=== PATIENT | female | born 1950 | race Caucasian/White ===

== ENCOUNTER 2020-09-26 15:17 | Emergency (ER) | payer MEDICARE, MEDICAID ==
[~2020-09-26] VITALS: Ht 152.4 cm; Wt 73.6 kg
[~2020-09-26 15:17] MED LIST: ACET500T33 PO; CHOL400C PO; CLON1TAB11 PO; CRESTOR20 MG PO; CYCL1DRO OP; GABA-586 PO; GLIP10TA24 PO; LACT10SO35 PO; LEVO112T4 PO; LIDO700A4 TP; METF10007 PO; PSYL1PAC7 PO; RANI300T PO; ROPI1TAB4 PO; SOLI5TAB2 PO; VALS160T3 PO; VERA240C2 PO; VILA40TA PO; VITAMIN B; lithium
[2020-09-26] MEDS ORDERED: ASPIRIN CHEWABLE 81 MG TABLET. PO ONE (15:30)
--- NOTE | 2020-09-26 15:37 | PHYS DOC ---
Past History Past Medical History: Bipolar, Diabetes, Fibromyalgia, GERD, Hypertension, TIA Past Surgical History: Appendectomy, Cholecystectomy, , Other Smoking: Non-smoker Alcohol Use: None Drug Use: None Adult General Chief Complaint Chief Complaint: CHEST PAIN HPI HPI Patient is a 69-year-old female who presents for chest pressure. Onset was 5 hours prior to arrival while at rest. Nothing known makes better or worse. P steve described as deep pressure "it feels like someone is pushing deep into my chest with their fist". It radiates to her right shoulder. Has history of provocative cardiac work-up in outpatient setting with an unremarkable cardiac stress test 2 years ago, his never undergone cardiac catheterization, no other known cardiac diagnoses. States she does have history of blood clot but this was "a long time ago ". This was provoked after prolonged sedentary state for which she denies being sedentary recently. Review of Systems Review of Systems Fourteen body systems of review of systems have been reviewed. See HPI for pertinent positives and negative responses, other farias all other systems are negative, non-pertinent or non-contributory Allergies Allergies Allergies Coded Allergies Type Severity Reaction Last Updated Verified codeine Allergy Unknown 09/26/20 Yes divalproex sodium Allergy Unknown 09/26/20 Yes lubiprostone Allergy Unknown dizziness 09/26/20 Yes meclizine Allergy Unknown 09/26/20 Yes midodrine Allergy Unknown 09/26/20 Yes morphine Allergy Unknown 09/26/20 Yes pentobarbital Allergy Unknown 09/26/20 Yes propoxyphene HCl Allergy Unknown 09/26/20 Yes Physical Exam Physical Exam Constitutional: Well developed, well nourished, no acute distress, non-toxic appearance. HENT: Normocephalic, atraumatic, bilateral external ears normal, oropharynx moist, no oral exudates, nose normal. Eyes: PERRLA, EOMI, conjunctiva normal, no discharge. Neck: Normal range of motion, no tenderness, supple, no stridor. Cardiovascular: Heart rate regular, sinus rhythm, no murmurs rubs or gallops Lungs & Thorax: Bilateral breath sounds clear to auscultation Abdomen: Bowel sounds normal, soft, no tenderness, no masses, no pulsatile masses. Nonsurgical abdomen, no peritoneal signs Skin: Warm, dry, no erythema, no rash. Back: No tenderness, no CVA tenderness. Extremities: No tenderness, no cyanosis, no clubbing, ROM intact, no edema. Neurologic: Alert and oriented X 3, grossly normal motor & sensory function, no focal deficits noted. Psychologic: Affect normal, judgement normal, mood normal. Current Patient Data Vital Signs Vital Signs Date Time Temp Pulse Resp B/P (MAP) Pulse Ox O2 Delivery O2 Flow Rate FiO2 09/26/20 17:03 97.8 75 16 120/76 (91) 98 Room Air 09/26/20 15:53 80 117/97 09/26/20 15:49 74 16 144/65 (91) 98 Room Air 09/26/20 15:45 97.8 76 16 165/62 (96) 96 Room Air 09/26/20 15:43 76 16 165/62 (96) 96 Room Air Lab Results Laboratory Tests Test 09/26/20 15:40 White Blood Count 6.6 x10^3/uL Red Blood Count 4.48 x10^6/uL Hemoglobin 13.9 g/dL Hematocrit 41.0 % Mean Corpuscular Volume 91 fL Mean Corpuscular Hemoglobin 31 pg Mean Corpuscular Hemoglobin Concent 34 g/dL Red Cell Distribution Width 16.1 % Platelet Count 153 x10^3/uL Neutrophils (%) (Auto) 61 % Lymphocytes (%) (Auto) 30 % Monocytes (%) (Auto) 8 % Eosinophils (%) (Auto) 1 % Basophils (%) (Auto) 1 % Neutrophils # (Auto) 4.0 x10^3uL Lymphocytes # (Auto) 1.9 x10^3/uL Monocytes # (Auto) 0.5 x10^3/uL Eosinophils # (Auto) 0.1 x10^3/uL Basophils # (Auto) 0.0 x10^3/uL Sodium Level 140 mmol/L Potassium Level 4.3 mmol/L Chloride Level 103 mmol/L Carbon Dioxide Level 31 mmol/L Anion Gap 6 Blood Urea Nitrogen 24 mg/dL Creatinine 1.0 mg/dL Estimated GFR (Cockcroft-Gault) 55.1 BUN/Creatinine Ratio 24 Glucose Level 140 mg/dL Calcium Level 9.3 mg/dL Total Bilirubin 0.6 mg/dL Aspartate Amino Transf (AST/SGOT) 26 U/L Alanine Aminotransferase (ALT/SGPT) 34 U/L Alkaline Phosphatase 45 U/L Troponin I Quantitative < 0.017 ng/mL CV-Bkr-D-Type Natriuretic Peptide 254 pg/mL Total Protein 7.1 g/dL Albumin 3.6 g/dL Albumin/Globulin Ratio 1.0 Lipase 82 U/L Current Medications Medications (Trade) Dose Ordered Sig/Elena Route PRN Reason Start Time Stop Time Status Last Admin Dose Admin Aspirin (Aspirin Chewable) 324 mg 1X ONCE PO 09/26/20 15:30 09/26/20 15:32 DC 09/26/20 15:53 Nitroglycerin (Nitrostat) 0.4 mg PRN Q5MIN PRN SL CHEST PAIN 09/26/20 16:00 09/26/20 17:25 DC 09/26/20 15:53 EKG EKG EKG ordered and interpreted by myself at 1525 hrs. as sinus rhythm at 79 bpm, unremarkable intervals, no axis deviation, incomplete right bundle branch block, no acute ischemic findings, no STEMI EKG compared to prior obtained 11/21/2013 a.m. grossly unchanged Radiology/Procedures Radiology/Procedures Single view of the chest. 09/26/2020 3:45 PM Indication: Reason: CHEST PAIN / Spl. Instructions: / History: Comparison: Chest radiograph May 07, 2012 Findings: There is no focal consolidation. There is no pleural effusion or pneumothorax. The cardiomediastinal silhouette and pulmonary vasculature are within normal limits. No acute osseous abnormalities are seen. Impression: No evidence of acute cardiopulmonary process. Electronically signed by: Kike Engel MD (09/26/2020 3:48 PM) [id number] Heart Score HEART Score for Chest Pain: HEART Score for Chest Pain Response (Comments) Value History Slighlty/Non-Suspicious 0 ECG Normal 0 Age > 65 2 Risk Factors >3 Risk Factors or Hx CAD 2 Troponin < Normal Limit 0 Total 4 Risk Factors: Risk Factors: DM, Current or recent (<one month) smoker, HTN, HLP, family history of CAD, obesity. Risk Scores: Risk Factors: DM, Current or recent (<one month) smoker, HTN, HLP, family history of CAD, obesity. Course & Med Decision Making Course & Med Decision Making Discussed with the patient all findings and diagnostic testing. I discussed most likely diagnosis of cardiac chest pain versus anxiety. I disclosed entirety of ER work-up and heart score, I recommended patient cardiac observation but she deferred voicing she would rather go home with close outpatient follow-up as she felt presenting symptoms were likely due to a panic attack. I did disclose that presenting symptoms could have been an acute presentation more concerning pathology but patient continuing to want to go home. As such, I stressed need for close outpatient follow-up to review today's ER visit. Strict return precautions were also discussed at length with good understanding by patient. Patient voiced understanding and agreement with the plan. Patient knows to come back for repeat evaluation if concerning signs or symptoms present prior to outpatient follow-up. Hemodynamically stable, ambulatory and well-appearing at time of disposition. Dragon Disclaimer Dragon Disclaimer This electronic medical record was generated, in whole or in part, using a voice recognition dictation system. Departure Departure: Impression: Primary Impression: Chest pain, unspecified Additional Impression: Anxiety about health Disposition: 01 DC HOME SELF CARE/HOMELESS Condition: IMPROVED Referrals: ABBIE SINGH (PCP) Patient Instructions: Chest Pain (Nonspecific) Additional Instructions: You were seen for chest pain. Your workup did not show any acute abnormalities today, but does not indicate that you do not have underlying cardiovascular disease. The cause of your chest pain was likely panic/anxiety in origin but this could not be confirmed. Because of this, it was recommended that you stay for cardiac observation but you chose not to. You will need to follow up with your primary doctor and/or hand assembler for further evaluation and treatment. You should return to the ED if you develop worsening chest pain, shortness of breath, fever, abnormal sweating, leg swelling, or any other new or concerning symptoms. Problem Qualifiers ASIYA JACKSON DO Sep 26, 2020 15:37
--- NOTE | 2020-09-26 15:51 | RAD ---
Single view of the chest. 09/26/2020 3:45 PM Indication: Reason: CHEST PAIN / Spl. Instructions: / History: Comparison: Chest radiograph May 07, 2012 Findings: There is no focal consolidation. There is no pleural effusion or pneumothorax. The cardiome diastinal silhouette and pulmonary vasculature are within normal limits. No acute osseous abnormaliti es are seen. Impression: No evidence of acute cardiopulmonary process. Electronically signed by: Kike Engel MD (09/26/2020 3:48 PM) [id number]
[2020-09-26] MEDS ORDERED: NITROGLYCERIN SUBLINGUAL 0.4 MG BOTTLE OF 25. SL PRN (16:00)
[2020-09-26 16:09] LABS: CALCIUM 9.3 mg/dL (8.5-10.1); GFR 55.1; POTASSIUM 4.3 mmol/L (3.5-5.1)
[2020-09-26 16:15] LABS: BASO % 1 % (0-3); EOS # 0.1 x10^3/uL (0.0-0.7); EOS % 1 % (0-3); HEMOGLOBIN 13.9 g/dL (12.0-15.5); LYMPH # 1.9 x10^3/uL (1.0-4.8); LYMPH % 30 % (24-48); MEAN CORPUSCULAR HEMOGLOBIN 31 pg (25-35); MEAN CORPUSCULAR HGB CONC 34 g/dL (31-37); MEAN CORPUSCULAR VOLUME 91 fL (79-100); MONO # 0.5 x10^3/uL (0.0-1.1); MONO % 8 % (0-9); NEUT % 61 % (31-73); PLATELET COUNT 153 x10^3/uL (140-400); RED BLOOD COUNT 4.48 x10^6/uL (3.50-5.40); RED CELL DISTRIBUTION WIDTH 16.1 % (11.5-14.5); WHITE BLOOD COUNT 6.6 x10^3/uL (4.0-11.0)
--- NOTE | 2020-09-26 16:18 | EKG ---
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
[2020-09-26 16:21] LABS: ALBUMIN 3.6 g/dL (3.4-5.0); TOTAL BILIRUBIN 0.6 mg/dL (0.2-1.0); TOTAL PROTEIN 7.1 g/dL (6.4-8.2)
[2020-09-26 17:03] VITALS: BP 120/76
== END 2020-09-26 17:24 | disposition home or self-care (01) ==
LOC: ER 15:17
DX: F41.9 Anxiety disorder, unspecified (principal); R07.89 Other chest pain; F31.9 Bipolar disorder, unspecified; E11.9 Type 2 diabetes mellitus without complications; M79.7 Fibromyalgia; K21.9 Gastro-esophageal reflux disease without esophagitis; I10 Essential (primary) hypertension; Z86.73 Personal history of transient ischemic attack (TIA), and cerebral infarction without residual deficits; Z90.89 Acquired absence of other organs; Z90.49 Acquired absence of other specified parts of digestive tract; Z98.890 Other specified postprocedural states; Z88.5 Allergy status to narcotic agent; Z88.8 Allergy status to other drugs, medicaments and biological substances
CPT/HCPCS: 36415; 71045; 80053; 83690; 83880; 84484; 85025; 93005; 99285

== ENCOUNTER 2020-10-24 13:40 | Emergency (ER) | payer MEDICAID, MEDICARE ==
[~2020-10-24] VITALS: Ht 162.6 cm; Wt 100.0 kg
[2020-10-24] MEDS ORDERED: ONDANSETRON PF 4 MG/2 ML VIAL. ONE (13:48)
--- NOTE | 2020-10-24 14:14 | PHYS DOC ---
Past History Past Medical History: Anxiety, Bipolar, Diabetes, Fibromyalgia, GERD, Hypertension, TIA (RADHA RANDOLPH APRN) Past Surgical History: Appendectomy, Cholecystectomy, , Other (RADHA RANDOLPH APRN) Smoking: Non-smoker Alcohol Use: None Drug Use: None (RADHA RANDOLPH APRN) General Adult HPI: HPI: Patient is a 69-year-old female who presents with nausea and vomiting. Patient states that symptoms started 2 days ago. Patient denies fever, cough, diarrhea. Patient does report some abdominal cramping. Patient was seen by her PCP this morning and told to come to the emergency room to be evaluated. Patient states that she is unable to keep any food or liquid down. Denies taking anything at home for pain or nausea. (RADHA RANDOLPH APRN) Review of Systems: Review of Systems: Constitutional: Denies fever or chills Eyes: Denies change in visual acuity HENT: Denies nasal congestion or sore throat Respiratory: Denies cough or shortness of breath Cardiovascular: Denies chest pain or edema GI: Reports abdominal cramping, nausea, vomiting. Denies bloody stools or diarrhea : Denies dysuria Musculoskeletal: Denies back pain or joint pain Integument: Denies rash Neurologic: Denies headache, focal weakness or sensory changes Endocrine: Denies polyuria or polydipsia Lymphatic: Denies swollen glands Psychiatric: Denies depression or anxiety (RADHA RANDOLPH APRN) Current Medications: Current Meds: Current Medications Medications (Trade) Dose Ordered Sig/Elena Start Time Stop Time Status Last Admin Dose Admin Ondansetron HCl (Zofran) 4 mg STK-MED ONCE 10/24/20 13:48 10/24/20 13:48 DC (RADHA RANDOLPH APRN) Allergies: Allergies: Allergies Coded Allergies Type Severity Reaction Last Updated Verified codeine Allergy Unknown 09/26/20 Yes divalproex sodium Allergy Unknown 09/26/20 Yes lubiprostone Allergy Unknown dizziness 09/26/20 Yes meclizine Allergy Unknown 09/26/20 Yes midodrine Allergy Unknown 09/26/20 Yes morphine Allergy Unknown 09/26/20 Yes pentobarbital Allergy Unknown 09/26/20 Yes propoxyphene HCl Allergy Unknown 09/26/20 Yes (RADHA RANDOLPH APRN) Physical Exam: PE: Constitutional: Well developed, well nourished, no acute distress, non-toxic ap pearance. [] HENT: Normocephalic, atraumatic, bilateral external ears normal, oropharynx moist, no oral exudates, nose normal. [] Eyes: PERRLA, EOMI, conjunctiva normal, no discharge. [] Neck: Normal range of motion, no tenderness, supple, no stridor. [] Cardiovascular:Heart rate regular rhythm, no murmur [] Lungs & Thorax: Bilateral breath sounds clear to auscultation [] Abdomen: Bowel sounds normal, soft, no tenderness, no masses, no pulsatile masses. [] Skin: Warm, dry, no erythema, no rash. [] Back: No tenderness, no CVA tenderness. [] Extremities: No tenderness, no cyanosis, no clubbing, ROM intact, no edema. [] Neurologic: Alert and oriented X 3, normal motor function, normal sensory function, no focal deficits noted. [] Psychologic: Affect normal, judgement normal, mood normal. [] (RADHA RANDOLPH APRN) EKG: EKG: Sinus rhythm. Heart rate [address] Smith at 1440. [] (RADHA RANDOLPH APRN) Radiology/Procedures: Radiology/Procedures: []XR CHEST 1V Clinical Indication: Reason: ABDOMINAL PAIN Comparison: AP chest September 26, 2020. Findings: The cardiomediastinal silhouette is normal. Lungs are clear. There is no pneumothorax. No pleural effusion is appreciated. No acute bone abnormality. IMPRESSION: No acute cardiopulmonary process. Electronically signed by: Scott Romero MD (10/24/2020 3:04 PM) [id number] (RADHA RANDOLPH APRN) Heart Score: Risk Factors: Risk Factors: DM, Current or recent (<one month) smoker, HTN, HLP, family history of CAD, obesity. Risk Scores: Score 0 - 3: 2.5% MACE over next 6 weeks - Discharge Home Score 4 - 6: 20.3% MACE over next 6 weeks - Admit for Clinical Observation Score 7 - 10: 72.7% MACE over next 6 weeks - Early Invasive Strategies (RADHA RANDOLPH APRN) Course & Med Decision Making: Course & Med Decision Making Pertinent Labs and Imaging studies reviewed. (See chart for details) []Patient is a 69-year-old female who presents with nausea and vomiting. Patient states that symptoms started 2 days ago. Patient denies fever, cough, diarrhea. Patient does report some abdominal cramping. Patient was seen by her PCP this morning and told to come to the emergency room to be evaluated. Patient states that she is unable to keep any food or liquid down. Denies taking anything at home for pain or nausea. Labs, UA, Bentyl Zofran and fluids given. Patient does report being here a week ago for chest pain and diagnosed with a hiatal hernia. Lactic was elevated at 3.3. Normal saline given for dehydration. Patient has no signs of infection. UA was negative for infection. EKG was normal sinus rhythm no cardiac arrhythmias. Patient was given Zofran and Bentyl in the emergency room for nausea and cramping. Patient reports that symptoms have improved with medication. Patient was also given a liter of fluids. Patient is discharged to home with Zofran for nausea. (RADHA RANDOLPH APRN) Dragon Disclaimer: Sylvia Disclaimer: This electronic medical record was generated, in whole or in part, using a voice recognition dictation system. (RADHA RANDOLPH APRN) Departure Departure: Impression: Primary Impression: Nausea and vomiting Qualified Codes: R11.2 - Nausea with vomiting, unspecified Disposition: 09 ADMITTED INPT THIS HOSP Condition: IMPROVED Referrals: GEOFF CHAHAL (PCP) Patient Instructions: Viral Gastroenteritis, [id number] Additional Instructions: You are seen in the emergency room today for nausea and vomiting. You were given nausea medication in the emergency room which improved your symptoms. I will send you home with prescription for Zofran for nausea. Please return to the emergency room with worsening symptoms or concerns. Otherwise you may follow-up with your PCP. EMERGENCY DEPARTMENT GENERAL DISCHARGE INSTRUCTIONS Thank you for coming to [facility] (ED) today and trusting us with you care. We trust that you had a positivie experience in our Emergency Department. If you wish to speak to the department management, you may call the director at [phone]. YOUR FOLLOW UP INSTRUCTIONS ARE FOLLOWS: 1. Do you have a private Doctor? If you do not have a private doctor, please ask for a resource list of physicians or clinics that may be able to assist you with follow up care. 2. The Emergency Physician has interpreted your x-rays. The X-Ray specialist will also review them. If there is a change in the findings, you will be notified in 48 hours when at all possible. 3. A lab test or culture has been done, your results will be reviewed and you will be notified if you need a change in treatment. ADDITIONAL INSTRUCTIONS AND INFORMATION: 1. Your care today has been supervised by a physician who is specially trained in emergency care. Many problems require more than one evaluation for a complete diagnosis and treatment. We recommend that you schedule your follow up appointment as recommended to ensure complete treatment of you illness or injury. If you are unable to obtain follow up care and continue to have a problem, or if your condition worsens, we recommend that you return to the ED. 2. We are not able to safely determine your condition over the phone nor are we able to give sound medical advice over the phone. For these safety reasons, if you call for medical advice we will ask you to come to the ED for further evaluation. 3. If you have any questions regarding these discharge instructions please call the ED at [phone]. SAFETY INFORMATION: In the interest of safety, wellness, and injury prevention; we encourage you to wear your sealbelt, if you smoke; quite smoking, and we encourage family to use a protective helmet for bicycling and other sporting events that present an increased risk for head injury. IF YOUR SYMPTOMS WORSEN OR NEW SYMPTOMS DEVELOP, OR YOU HAVE CONCERNS ABOUT YOUR CONDITION; OR IF YOUR CONDITION WORSENS WHILE YOU ARE WAITING FOR YOUR FOLLOW UP APPOINTMENT; EITHER CONTACT YOUR PRIMARY CARE DOCTOR, THE PHYSICIAN WHOSE NAME AND NUMBER YOU WERE GIVEN, OR RETURN TO THE ED IMMEDIATELY. Scripts Ondansetron Hcl (ZOFRAN) 4 Mg Tablet 4 MG PO TID PRN PRN for NAUSEA, #9 TAB Prov: RADHA RANDOLPH APRN 10/24/20 Attending Signature Attending Signature I have reviewed the PA/CLINICAL SERVICES DIRECTOR's note and plan of care. I was available for consultation as needed during the patient's visit in the emergency department. I agree with the clinical impression, plan, and disposition. (KAREL SMITH DO) RADHA RANDOLPH APRN Oct 24, 2020 14:14 KAREL SMITH DO Oct 25, 2020 07:58
[2020-10-24] MEDS ORDERED: IV NORMAL SALINE 1,000ML 1,000 ML IV ONE (14:15)
[2020-10-24] MEDS ORDERED: DICYCLOMINE 20 MG/2 ML VIAL. IM ONE (14:30)
[2020-10-24 14:34] LABS: BASO % 0 % (0-3); EOS # 0.1 x10^3/uL (0.0-0.7); EOS % 1 % (0-3); HEMATOCRIT 45.4 % (36.0-47.0); HEMOGLOBIN 15.2 g/dL (12.0-15.5); LYMPH # 1.6 x10^3/uL (1.0-4.8); LYMPH % 21 % (24-48); MEAN CORPUSCULAR HEMOGLOBIN 31 pg (25-35); MEAN CORPUSCULAR HGB CONC 34 g/dL (31-37); MEAN CORPUSCULAR VOLUME 92 fL (79-100); MONO # 0.4 x10^3/uL (0.0-1.1); MONO % 6 % (0-9); NEUT # 5.5 x10^3uL (1.8-7.7); NEUT % 72 % (31-73); PLATELET COUNT 169 x10^3/uL (140-400); RED BLOOD COUNT 4.92 x10^6/uL (3.50-5.40); RED CELL DISTRIBUTION WIDTH 15.3 % (11.5-14.5); WHITE BLOOD COUNT 7.6 x10^3/uL (4.0-11.0)
[2020-10-24 14:44] LABS: CALCIUM 9.5 mg/dL (8.5-10.1); CREATININE 1.1 mg/dL (0.6-1.0); GFR 49.4; POTASSIUM 3.9 mmol/L (3.5-5.1)
--- NOTE | 2020-10-24 14:44 | EKG ---
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
[2020-10-24 14:56] LABS: ALBUMIN 4.1 g/dL (3.4-5.0); ALBUMIN/GLOBULIN RATIO 1.3 (1.0-1.7); TOTAL PROTEIN 7.2 g/dL (6.4-8.2)
--- NOTE | 2020-10-24 15:07 | RAD ---
XR CHEST 1V Clinical Indication: Reason: ABDOMINAL PAIN Comparison: AP chest September 26, 2020. Findings: The cardiomediastinal silhouette is normal. Lungs are clear. There is no pneumothorax. No pleural eff usion is appreciated. No acute bone abnormality. IMPRESSION: No acute cardiopulmonary process. Electronically signed by: Scott Romero MD (10/24/2020 3:04 PM) [id number]
[2020-10-24] MEDS ORDERED: ONDANSETRON PF 4 MG/2 ML VIAL. IVP ONE (15:45)
[2020-10-24] MEDS ORDERED: ONDA4TAB7 PO (16:17)
[2020-10-24 16:24] VITALS: BP 137/56
[2020-10-24 16:27] LABS: BILIRUBIN,URINE NEG (NEG); CLARITY,URINE CLEAR; COLOR,URINE YELLOW; GLUCOSE,URINE NEG (NEG)
[2020-10-24 16:28] LABS: BACTERIA,URINE FEW /HPF (0-FEW); NITRITE,URINE NEG (NEG); SQUAMOUS EPITHELIAL CELL,UR MOD /LPF; UROBILINOGEN,URINE 0.2 mg/dL (0.2 mg/dL); WBC,URINE 0 /HPF (0-4)
== END 2020-10-24 16:42 | disposition admitted as inpatient to this hospital (09) ==
LOC: ER 13:40
DX: R11.2 Nausea with vomiting, unspecified (principal); R10.9 Unspecified abdominal pain; F41.9 Anxiety disorder, unspecified; F31.9 Bipolar disorder, unspecified; E11.9 Type 2 diabetes mellitus without complications; M79.7 Fibromyalgia; K21.9 Gastro-esophageal reflux disease without esophagitis; I10 Essential (primary) hypertension; Z86.73 Personal history of transient ischemic attack (TIA), and cerebral infarction without residual deficits; Z90.49 Acquired absence of other specified parts of digestive tract; Z90.89 Acquired absence of other organs; Z98.890 Other specified postprocedural states; Z88.5 Allergy status to narcotic agent; Z88.8 Allergy status to other drugs, medicaments and biological substances
CPT/HCPCS: 36415; 71045; 80053; 81001; 83605; 83735; 85025; 93005; 96361; 96372; 96374; 99285; J0500; J2405; J7030

== ENCOUNTER → 2021-06-05 | Outpatient (CLI) | payer MEDICARE ==
[~2021-06-05] MED LIST changes: +ONDA4TAB7 PO
--- NOTE | 2021-06-05 10:10 | RAD ---
INDICATION: Screening for osteopenia/osteoporosis. Postmenopausal evaluation COMPARISON: None. TECHNIQUE: Bone densitometry was performed through the lumbar spine and proximal femur. IMPRESSION: Lumbar Spine: BMD: 1.4 T-Score1.9 Range: Normal Proximal Femur: BMD: 1.0 T-Score: 0.6 Range: Normal World Health Organization Criteria for Bone Density: T-Score: > -1.0: Normal Range < -1.0 to -2.5: Osteopenic Range < -2.5: Osteoporotic Range Electronically signed by: Justin Uriostegui MD (06/05/2021 10:08 AM) [id number]
== END ==
LOC: DXRAD 09:02
PROVIDERS: ATTEND Family Medicine
DX: Z78.0 Asymptomatic menopausal state (principal)
CPT/HCPCS: 77080

== ENCOUNTER 2022-01-08 15:38 | Emergency (ER) | payer MEDICARE ==
[~2022-01-08] VITALS: Ht 162.6 cm; Wt 100.0 kg
[2022-01-08 15:40] VITALS: BP 160/56
[2022-01-08] MEDS: LIDOCAINE 1%/EPI 1:100,000 20 ML VIAL. IJ ONE (16:00)
--- NOTE | 2022-01-08 16:14 | PHYS DOC ---
Past History Past Medical History: Diabetes, Hypertension Past Surgical History: Appendectomy, Cholecystectomy, Additional Past Surgical Histo: hernia Smoking: Non-smoker Alcohol Use: None Drug Use: None General Adult EDM: Chief Complaint: ABSCESS HPI: HPI: Patient is a 71-year-old female with an abscess that has been getting progressively larger and more painful for the last few days. This is on the l eft suprapubic area. She has not had a fever. The area did start to drain on its own earlier today. No nausea, vomiting, chills or rigors. Review of Systems: Review of Systems: Constitutional: Denies fever Eyes: Denies change in visual acuity or eye pain HENT: Denies sore throat Respiratory: Denies shortness of breath Cardiovascular: Denies chest pain GI: Denies abd pain : Denies dysuria Musculoskeletal: Denies back or extremity injury Integument: Denies rash or skin lesions other than abscess noted in HPI Neurologic: Denies headache, focal weakness or sensory changes All other systems were reviewed and found to be within normal limits, except as documented in this note. Current Medications: Current Meds: Current Medications Medications (Trade) Dose Ordered Sig/Elena Start Time Stop Time Status Last Admin Dose Admin Lidocaine/ Epinephrine (Xylocaine 1%-Epi 1:100,000) 20 ml 1X ONCE 01/08/22 16:00 01/08/22 16:02 DC Allergies: Allergies: Allergies Coded Allergies Type Severity Reaction Last Updated Verified codeine Allergy Unknown 09/26/20 Yes divalproex sodium Allergy Unknown 09/26/20 Yes lubiprostone Allergy Unknown dizziness 09/26/20 Yes meclizine Allergy Unknown 09/26/20 Yes midodrine Allergy Unknown 09/26/20 Yes morphine Allergy Unknown 09/26/20 Yes pentobarbital Allergy Unknown 09/26/20 Yes propoxyphene HCl Allergy Unknown 09/26/20 Yes Physical Exam: PE: Constitutional: Well developed, well nourished, no acute distress, non-toxic appearance. HENT: Normocephalic, atraumatic, bilateral external ears normal, mucosa moist, nose normal. Eyes: EOMI, conjunctiva normal, no discharge. Neck: Normal range of motion, supple, no stridor, no meningeal signs. Cardiovascular: Regular rate and rhythm Lungs & Thorax: Bilateral breath sounds clear to auscultation Abdomen: Soft, no tenderness or obvious masses Skin: Warm, dry, 5 to 6 cm area of folliculitis in the suprapubic region on the left side. Tender to touch.. Extremities: No tenderness, no cyanosis, no clubbing, ROM intact, no edema. Neurologic: Alert and oriented, normal motor function, normal sensory function, no focal deficits noted. Psychologic: Affect normal, judgement normal, mood normal. Current Patient Data: Vital Signs: Vital Signs Date Time Temp Pulse Resp B/P (MAP) Pulse Ox O2 Delivery O2 Flow Rate FiO2 01/08/22 15:40 86 16 160/56 (90) 95 Room Air EKG: EKG: [] Radiology/Procedures: Radiology/Procedures: [] Heart Score: C/O Chest Pain: No Risk Factors: Risk Factors: DM, Current or recent (<one month) smoker, HTN, HLP, family history of CAD, obesity. Risk Scores: Score 0 - 3: 2.5% MACE over next 6 weeks - Discharge Home Score 4 - 6: 20.3% MACE over next 6 weeks - Admit for Clinical Observation Score 7 - 10: 72.7% MACE over next 6 weeks - Early Invasive Strategies Course & Med Decision Making: Course & Med Decision Making Pertinent Labs and Imaging studies reviewed. (See chart for details) [] This is a 71-year-old female with an abscess/folliculitis. This was drained in the ED. Procedure note: Patient was prepped with iodine and anesthetized using 1% lidocaine with epinephrine. #11 scalpel was used to make a small incision and quite a bit purulent discharge was expressed in the area. Patient tolerated this well without complications. We will avoid packing for now as the area of fluctuance seems to have resolved. We will start her on Bactrim and Keflex and have her follow-up with her primary care physician in the next couple of days for wound check, return to the emergency department if symptoms become worse or other concerns arise, she is stable for discharge at this time. Dragon Disclaimer: Dragon Disclaimer: This electronic medical record was generated, in whole or in part, using a voice recognition dictation system. Departure Departure: Impression: Primary Impression: Folliculitis Additional Impression: Abscess Disposition: HOME / SELF CARE / HOMELESS Condition: STABLE Referrals: FELA,GEOFF (PCP) Patient Instructions: Abscess, Folliculitis Scripts Cephalexin (KEFLEX) 500 Mg Capsule 1000 MG PO BID for cellulitis for 7 Days, #28 CAP Prov: LIDIA GARCIA MD 01/08/22 Sulfamethoxazole/Trimethoprim (BACTRIM DS TABLET) 1 Each Tablet 1 TAB PO BID for abscess for 7 Days, #14 TAB 0 Refills Prov: LIDIA GARCIA MD 01/08/22 LIDIA GARCIA MD Jan 08, 2022 16:14
[2022-01-08] MEDS ORDERED: SULF1TAB24 PO (16:53)
[2022-01-08] MEDS ORDERED: CEPH500C PO (16:53)
== END 2022-01-08 17:56 | disposition home or self-care (01) ==
LOC: ER 15:38
DX: L73.9 Follicular disorder, unspecified (principal); L02.211 Cutaneous abscess of abdominal wall; E11.9 Type 2 diabetes mellitus without complications; I10 Essential (primary) hypertension; Z90.89 Acquired absence of other organs; Z90.49 Acquired absence of other specified parts of digestive tract; Z88.5 Allergy status to narcotic agent; Z88.8 Allergy status to other drugs, medicaments and biological substances
CPT/HCPCS: 10060; 99284